=== PATIENT | male | born 1945 | race Caucasian/White ===

== ENCOUNTER 2016-10-17 15:15 | Emergency (ER) | payer BC, MEDICARE ==
--- NOTE | 2016-10-17 15:24 | Emergency Department Record ---
History of Present Illness - General Chief complaint: Nosebleed/epistaxis Stated complaint: nose bleed Time Seen by Provider: 10/17/16 15:19 Source: Patient, Family Mode of Arrival: Ambulatory Limitations: No limitations - History of Present Illness Initial comments: 71 yo male on Coumadin presents with a left nostril nose bleed. He has had nose bleeds in the past that required cauterization. No trauma. The nose started bleeding spontaneously. No other recent nose bleeds. MD complaint: Epistaxis -: Minutes(s) (30) Location: Nose Severity: Moderate Worsens with: None Context-Epistaxis: Warfarin use Context- Dental: Other (Coumadin use) - Related Data Home Medications Medication Instructions Recorded Confirmed Last Taken Aspirin [Adult Low Dose Aspirin EC] 81 mg PO DAILY 06/26/15 06/26/15 06/26/15 Insulin Glargine,Hum.rec.anlog 30 units SQ QHS 06/26/15 06/26/15 06/25/15 [Lantus Solostar] Lisinopril [Zestril] 20 mg PO DAILY 06/26/15 06/26/15 06/26/15 Metformin HCl [Metformin HCl] 1,000 mg PO BID 06/26/15 06/26/15 06/26/15 Metoprolol Succinate [Toprol Xl] 1 tab PO DAILY 06/26/15 06/26/15 06/26/15 Multivitamin [Multi-Vitamin Daily] 1 each PO DAILY 06/26/15 06/26/15 06/26/15 Oxybutynin Chloride [Oxybutynin 5 mg PO DAILY 06/26/15 06/26/15 06/26/15 Chloride ER] Simvastatin [Simvastatin] 1 tab PO QHS 06/26/15 06/26/15 06/25/15 Sitagliptin Phosphate [Januvia] 1 tab PO QHS 06/26/15 06/26/15 06/25/15 Warfarin Sodium [Warfarin Sodium] 10 mg PO QHS 06/26/15 06/26/15 06/25/15 Previous Rx's Medication Instructions Recorded Cephalexin [Keflex] 500 mg PO TID #9 cap 10/17/16 Allergies Allergy/AdvReac Type Severity Reaction Status Date / Time No Known Drug Allergies Allergy Verified 10/17/16 15:26 Review of Systems Constitutional: Denies: Chills, Fever, Malaise, Night sweats, Weakness Eyes: Denies: Eye discharge, Eye pain ENT: Reports: Epistaxis. Denies: Congestion, Ear pain, Throat pain Respiratory: Denies: Cough, Dyspnea, Hemoptysis Cardiovascular: Denies: Chest pain, Palpitations, Syncope Endocrine: Denies: Fatigue Gastrointestinal: Denies: Abdominal pain, Diarrhea, Nausea, Vomiting Genitourinary: Denies: Dysuria, Frequency, Hematuria Musculoskeletal: Denies: Arthralgia, Back pain, Myalgia Skin: Denies: Bruising, Change in color, Rash Neurological: Denies: Headache Psychiatric: Denies: Anxiety Hematological/Lymphatic: Denies: Blood Clots, Easy bleeding, Easy bruising Past Medical History - SOCIAL HISTORY Smoking Status: Former smoker - RESPIRATORY Hx Respiratory Disorders: No - CARDIOVASCULAR Hx Cardio Disorders: Yes Hx Hypertension: Yes Comment:: high cholestrol - NEURO Hx Neuro Disorders: Yes Hx CVA: Yes - GI Hx GI Disorders: No - Hx Genitourinary Disorders: No - ENDOCRINE Hx Endocrine Disorders: Yes Hx Diabetes: Yes (Type 2) - MUSCULOSKELETAL Hx Musculoskeletal Disorders: No - PSYCH Hx Psych Problems: No - HEMATOLOGY/ONCOLOGY Hx Hematology/Oncology Disorders: No Family Medical History Hx Heart Disease: Mother Physical Exam - General General Appearance: Alert, Oriented x3, Cooperative - Head Head exam: Atraumatic, Normocephalic, Normal inspection - Eye Eye exam: Normal appearance, PERRL. negative: Conjunctival injection, Scleral icterus - ENT ENT exam: Mucous membranes moist, Normal orophraynx. negative: Normal exam Ear exam: Normal external inspection. negative: External canal tenderness Nasal Exam: Active bleeding (left side only) Mouth exam: Normal external inspection, Tongue normal Teeth exam: Normal inspection. negative: Dental caries Throat exam: Normal inspection. negative: Tonsillar erythema, Tonsillar exudate - Neck Neck exam: Normal inspection, Full ROM. negative: Tenderness - Respiratory Respiratory exam: Normal lung sounds bilaterally. negative: Respiratory distress - Cardiovascular Cardiovascular Exam: Regular rate, Normal rhythm, Normal heart sounds - Rectal Rectal exam: Deferred - exam: Deferred - Neurological Neurological exam: Alert, Oriented X3 - Psychiatric Psychiatric exam: Normal affect, Normal mood - Skin Skin exam: Dry, Intact, Normal color, Warm Course - Reevaluation(s) Reevaluation #1: Left side packed with TLE on cotton 10/17/16 15:20 Reevaluation #2: Angelita TLE packing was removed. He had no bleeding. He had enlarged raw vessels on the septum. This was cauterized with silver nitrate. No rebleed. Since he is on Coumadin a merocel was placed as well. He tolerated this well. No rebleed. DC home. He sees Dr Mcduffie of ENT He is to call Tuesday for an appointment. 10/17/16 16:24 Medical Decision Making - Lab Data Result diagrams: 10/17/16 15:44 10/17/16 15:44 Disposition Disposition: Discharge Clinical Impression: Epistaxis Disposition: Home, Self-Care Condition: (1) Good Instructions: Epistaxis (ED) Additional Instructions: Return if you have pain, fever, dripping blood or concerns about the pack or your healing Call Dr Mcduffie tuesday The pack should be removed in 3 days Take Keflex 3 times daily Prescriptions: Cephalexin [Keflex] 500 mg PO TID #9 cap Forms: Patient Portal Access Time of Disposition: 16:27
[2016-10-17 15:56] LABS: BASO % 0.4 % (0-6); EOS % 3.2 % (0-6); GRAN % 74.6 % (47-80); HEMATOCRIT 41.4 % (42.0-52.0); HEMOGLOBIN 13.6 gm/dl (14.0-18.0); LYMPH % 15.4 % (16-45); MEAN CELL VOLUME 89.2 fl (81-97); MEAN CORPUSCULAR HEMOGLOBIN 29.3 pg (27-33); MEAN CORPUSCULAR HGB CONC 32.9 g/dl (32-36); MEAN PLATELET VOLUME 10.2 fl (7.4-10.4); MONO % 6.4 % (0-9); PLATELET COUNT 204 K/uL (130-400); RED BLOOD COUNT 4.64 M/uL (4.40-5.70); RED CELL DISTRIBUTION WIDTH 14.9 % (11.5-14.5); WHITE BLOOD COUNT W/O DIFF 7.2 K/uL (4.2-12.2)
[2016-10-17 16:09] LABS: ANION GAP 9.2 (7-16); BLOOD UREA NITROGEN 13 mg/dL (9-20); CARBON DIOXIDE 24.8 mmol/L (22-30); CREATININE 0.6 mg/dL (0.66-1.25); EST GLOMERULAR FILTRATION RATE > 60 ml/min; GLUCOSE,RANDOM 172 mg/dL (70-110)
[2016-10-17 16:10] LABS: INR 2.16; PROTHROMBIN TIME (PATIENT) 24.4 SECONDS (9.5-12.1)
== END 2016-10-17 16:56 | disposition home or self-care (01) ==
LOC: ER 15:15
DX: R04.0 Epistaxis (principal); I48.91 Unspecified atrial fibrillation; I10 Essential (primary) hypertension; Z79.01 Long term (current) use of anticoagulants; Z87.891 Personal history of nicotine dependence
CPT/HCPCS: 30901; 80048; 85025; 85610; 85730; 99283; 99284

== ENCOUNTER 2016-10-21 01:38 | Emergency (ER) | payer MEDICARE ==
--- NOTE | 2016-10-21 02:04 | Emergency Department Record ---
History of Present Illness - General Chief complaint: Nosebleed/epistaxis Stated complaint: NOSE BLEED Time Seen by Provider: 10/21/16 01:52 Source: Patient Mode of Arrival: Ambulatory Limitations: No limitations - History of Present Illness Initial comments: 71 yo male returns to ED for recurrent epistaxis. Patient was seen 3 days ago and underwent both silver nitrate cauterization as well as nasal packing, patient was instructed to follow-up with Dr. Mcduffie ENT but was told by the office that "we not longer do that here". Patient reports that he removed the nasal pack at home 2 days ago "because it was saturated". Patient is currently taking coumadin for atrial fibrillation. complaint: Epistaxis Onset/Timin -: Minutes(s) Location: Other Severity: Mild Consistency: Other Improves with: Other Worsens with: Other Context-Epistaxis: Warfarin use Context- Dental: Other Context- Ear: Other Associated Symptoms: Other - Related Data Home Medications Medication Instructions Recorded Confirmed Last Taken Aspirin [Adult Low Dose Aspirin EC] 81 mg PO DAILY 06/26/15 06/26/15 06/26/15 Insulin Glargine,Hum.rec.anlog 30 units SQ QHS 06/26/15 06/26/15 06/25/15 [Lantus Solostar] Lisinopril [Zestril] 20 mg PO DAILY 06/26/15 06/26/15 06/26/15 Metformin HCl [Metformin HCl] 1,000 mg PO BID 06/26/15 06/26/15 06/26/15 Metoprolol Succinate [Toprol Xl] 1 tab PO DAILY 06/26/15 06/26/15 06/26/15 Multivitamin [Multi-Vitamin Daily] 1 each PO DAILY 06/26/15 06/26/15 06/26/15 Oxybutynin Chloride [Oxybutynin 5 mg PO DAILY 06/26/15 06/26/15 06/26/15 Chloride ER] Simvastatin [Simvastatin] 1 tab PO QHS 06/26/15 06/26/15 06/25/15 Sitagliptin Phosphate [Januvia] 1 tab PO QHS 06/26/15 06/26/15 06/25/15 Warfarin Sodium [Warfarin Sodium] 10 mg PO QHS 06/26/15 06/26/15 06/25/15 Previous Rx's Medication Instructions Recorded Cephalexin [Keflex] 500 mg PO TID #9 cap 10/17/16 Cephalexin [Keflex] 500 mg PO QID #25 cap 10/21/16 Allergies Allergy/AdvReac Type Severity Reaction Status Date / Time No Known Drug Allergies Allergy Verified 10/17/16 15:26 Travel Screening - Travel/Exposure Within Last 30 Days Have you traveled within the last 30 days?: No - Travel/Exposure Within Last Year Have you traveled outside the [place] in the last year?: No - Additonal Travel Details Have you been exposed to anyone with a communicable illness?: No - Travel Symptoms Symptom Screening: None Review of Systems Constitutional: Denies: Chills, Fever, Malaise, Night sweats Eyes: Denies: Eye discharge, Eye pain ENT: Reports: Epistaxis. Denies: Congestion, Ear pain Respiratory: Denies: Cough, Dyspnea Cardiovascular: Denies: Chest pain, Dyspnea on exertion Endocrine: Denies: Fatigue, Heat or cold intolerance Gastrointestinal: Denies: Abdominal pain, Nausea, Vomiting Genitourinary: Denies: Hematuria, Incontinence, Retention Musculoskeletal: Denies: Arthralgia, Back pain, Gout, Joint swelling Skin: Denies: Bruising, Change in color Neurological: Denies: Abnormal gait, Confusion, Headache, Tingling Psychiatric: Denies: Anxiety Hematological/Lymphatic: Reports: Easy bleeding (on warfarin). Denies: Anemia, Blood Clots Past Medical History - SOCIAL HISTORY Smoking Status: Former smoker - RESPIRATORY Hx Respiratory Disorders: No - CARDIOVASCULAR Hx Cardio Disorders: Yes Hx Hypertension: Yes Comment:: high cholestrol - NEURO Hx Neuro Disorders: Yes Hx CVA: Yes - GI Hx GI Disorders: No - Hx Genitourinary Disorders: No - ENDOCRINE Hx Endocrine Disorders: Yes Hx Diabetes: Yes (Type 2) - MUSCULOSKELETAL Hx Musculoskeletal Disorders: No - PSYCH Hx Psych Problems: No - HEMATOLOGY/ONCOLOGY Hx Hematology/Oncology Disorders: No Family Medical History Any Significant Family History?: No Hx Heart Disease: Mother Physical Exam - General General Appearance: Alert, Oriented x3, Cooperative, Moderate distress Limitations: No limitations - Head Head exam: Atraumatic, Normocephalic, Normal inspection Head exam detail: negative: Abrasion, Contusion, Neil's sign, General tenderness, Hematoma, Laceration - Eye Eye exam: Normal appearance. negative: Conjunctival injection, Periorbital swelling, Periorbital tenderness, Scleral icterus - ENT Ear exam: negative: Auricular hematoma, Auricular trauma Nasal Exam: Active bleeding. negative: Discharge, Dried blood, Foreign body Mouth exam: negative: Drooling, Laceration, Tongue elevation - Neck Neck exam: Normal inspection. negative: Meningismus, Tenderness - Respiratory Respiratory exam: Normal lung sounds bilaterally. negative: Rhonchi, Stridor, Wheezes - Cardiovascular Cardiovascular Exam: Regular rate, Normal rhythm, Normal heart sounds - GI/Abdominal GI/Abdominal exam: Soft. negative: Rebound, Rigid, Tenderness - Rectal Rectal exam: Deferred - exam: Deferred - Extremities Extremities exam: Normal inspection. negative: Pedal edema, Tenderness - Back Back exam: Reports: Normal inspection. Denies: CVA tenderness (R), CVA tenderness (L) - Neurological Neurological exam: Alert, Normal gait, Oriented X3 - Psychiatric Psychiatric exam: Normal affect, Normal mood - Skin Skin exam: Normal color. negative: Abrasion Type of lesion: negative: abrasion Course Vital Signs 10/21/16 01:44 Pulse Rate 88 Respiratory 24 Rate Blood Pressure 150/86 Pulse Ox 95 - Reevaluation(s) Reevaluation #1: 10/21/16 01:59 Patient has been seen and examined, reports that he removed the previously placed packing at home 2 days ago resulting in re-bleeding. TLE soaked gauze placed in the left nare, and the patient is refusing the nare to be re-packed at this time. Reevaluation #2: 10/21/16 02:36 Hgb 14.4, INR 2.34. Procedure Note: Following removal of TLE soaked gauze, no clear etiology for the patient's bleeding could be identified. After a long discussion, patient is willing to have packing placed. No Floseal was available in the ED, Rhino-rocket was inserted into the left nare using surgilube, 2.5 mL of water was used to inflate the balloon. No bleeding was noted following packing placement, will continue to observe for 20-30 minutes. Reevaluation #3: 10/21/16 03:04 Patient reassessed, no further vomiting is noted on examination. Patient appears stable for discharge at this time. Medical Decision Making - Lab Data Result diagrams: 01/05/17 02:05 Disposition Disposition: Discharge Clinical Impression: Epistaxis Disposition: Home, Self-Care Condition: (2) Stable Instructions: Epistaxis (ED) Additional Instructions: Return to ED if your symptoms worsen or if you have any concerns. Follow-up with Dr. Saenz in 1-3 days as directed, call tomorrow morning for a follow-up appointment. Leave packing in place until seen by an ENT physician. Prescriptions: Cephalexin [Keflex] 500 mg PO QID #25 cap Referrals: JORDI SAENZ [MEDICAL DOCTOR] - Forms: Patient Portal Access Time of Disposition: 02:40
[2016-10-21 02:09] LABS: BASO % 0.6 % (0-6); EOS % 3.3 % (0-6); GRAN % 70.7 % (47-80); HEMATOCRIT 45.4 % (42.0-52.0); HEMOGLOBIN 14.4 gm/dl (14.0-18.0); LYMPH % 17.8 % (16-45); MEAN CELL VOLUME 92.1 fl (81-97); MEAN CORPUSCULAR HEMOGLOBIN 29.2 pg (27-33); MEAN CORPUSCULAR HGB CONC 31.7 g/dl (32-36); MEAN PLATELET VOLUME 10.2 fl (7.4-10.4); MONO % 7.6 % (0-9); PLATELET COUNT 205 K/uL (130-400); RED BLOOD COUNT 4.93 M/uL (4.40-5.70); RED CELL DISTRIBUTION WIDTH 14.9 % (11.5-14.5); WHITE BLOOD COUNT W/O DIFF 7.3 K/uL (4.2-12.2)
[2016-10-21 02:19] LABS: INR 2.34; PROTHROMBIN TIME (PATIENT) 26.4 SECONDS (9.5-12.1)
== END 2016-10-21 03:14 | disposition home or self-care (01) ==
LOC: ER 01:38
DX: R04.0 Epistaxis (principal); I48.91 Unspecified atrial fibrillation; Z79.01 Long term (current) use of anticoagulants
CPT/HCPCS: 30901; 85025; 85610; 99283; 99284